=== PATIENT | male | born 1995 | race Caucasian/White ===

== ENCOUNTER 2019-01-16 11:02 | Emergency (ER) | payer OTHER, SELFPAY ==
[2019-01-16 11:10] VITALS: BP 140/101; PULSE 93; RESP 15; TEMP 36.7; O2SAT 99; BMI 21.4
--- NOTE | 2019-01-16 11:21 | PC.NURSE ---
PT reports being able to hear popping in chest. STates it started 2 days ago. Initially stated had some burning to left side down left arm and into left jaw. Denies any more burning since initial. States continues with popping while lying down. states during the day does not have popping feeling. States parents were able to hear popping sound.
--- NOTE | 2019-01-16 12:03 | ED_ITS ---
HPI - Chest Pain <SAUNDRA Rodriguez - Last Filed: 01/16/19 22:17> General Chief Complaint: Chest Pain Stated Complaint: positional intermittent popping in chest Time Seen by Provider: 01/16/19 11:14 Source: patient Mode of arrival: ambulatory Limitations: no limitations History of Present Illness HPI narrative: A 23-year-old male with a history of a resolved heart murmur, presents emergency department today complaining of a clicking to his middle to left chest for the past 2 days. He states the clicking is worse with movement, leaning forward, and leaning to the left. He notices that correlates with his heartbeat and he can reproduce it if he takes a deep breath. Patient states about 2 days ago he tried a new upper body workout and developed a burning 2/10 pain in the left side of his upper body of that only lasted a few hours. He states he was sitting on this occurred and moving his arms made the pain worse. Patient reports that he sleeps on the left side of her body he experiences more clicking but no pain. Today he denies any chest pain and states the clicking has completely resolved over the last 2 hours. He denies any vision changes, headaches, fevers, chills, chest pain, shortness of breath, shoulder pain, rib pain, abdominal pain, nausea, vomiting, stool changes. He denies any change in pain with activity, denies any significant heart history other than a murmur that resolved symptom ago, he does not remember the name of his murmur. Denies long trips or history of DVT. Related Data Home Medications Medication Instructions Recorded Confirmed No Known Home Medications 01/16/19 01/16/19 Allergies Allergy/AdvReac Type Severity Reaction Status Date / Time No Known Drug Allergies Allergy Verified 01/16/19 11:10 Review of Systems <SAUNDRA Rodriguez - Last Filed: 01/16/19 22:17> Review of Systems Narrative: REVIEW OF SYSTEMS: GENERAL: Denies fever or chills. HENT: No head trauma, hearing loss or sore throat. EYES: No loss of vision, double vision, eye pain, or irritation. CARDIOVASCULAR: Complains of as clicking, see HPI RESPIRATORY: No shortness of breath or cough. GASTROINTESTINAL: No nausea, vomiting, diarrhea, or constipation. GENITOURINARY: No flank pain or dysuria. MUSCULOSKELETAL: Complains of rib pain, see HPI. Denies weakness, or deformities. INTEGUMENTARY: No rash, lesions, or pruritus. NEURO: No numbness, tingling, memory loss, or confusion. PSYCH: No behavior or mood changes. PFSH <SAUNDRA Rodriguez - Last Filed: 01/16/19 22:17> Medical History No significant medical problems (Acute) Social History Smoking Status: Never smoker Social History Smoking Status: Never smoker Exam <SAUNDRA Rodriguez - Last Filed: 01/16/19 22:17> Initial Vital Signs Initial Vital Signs: Vital Signs Temperature 98.1 F 01/16/19 11:10 Pulse Rate 93 H 01/16/19 11:10 Respiratory Rate 15 01/16/19 11:10 Blood Pressure 140/101 H 01/16/19 11:10 Pulse Oximetry 99 01/16/19 11:10 PHYSICAL EXAMINATION: GENERAL: Well groomed, alert, and cooperative. Answers questions promptly and appropriately. Vital signs noted. HENT: Normocephalic, atraumatic. Ear canals patent. Oral mucosa is pink and moist. EYES: Conjunctiva pink, sclera white, no periorbital swelling. CHEST: Normal to inspection and without deformities. CARDIOVASCULAR: S1 and S2 sounds normal. Regular rate and rhythm, no murmurs, clicks, or bruits. No pedal edema. RESPIRATORY: Normal respiratory rate, trachea midline, airway patent. No stridor, nasal flaring or accessory muscle use. Lungs are clear in all bashir without wheeze, rhonchi, or crackles. GASTROINTESTINAL: Bowel sounds normoactive. Abdomen is soft and non-tender. No organomegaly. MUSCULOSKELETAL: Tenderness to palpation of costal sternal margin to left ribs (about ribs 7, 8). No swelling, rash, or surrounding erythema. No ecchymosis to area. Full range of motion of upper extremities. No spinal tenderness. Normal gait and coordination. Equal tone and mass bilaterally. EXTREMITIES: CMS intact. Moves all extremities. SKIN: Warm, dry, soft, appropriate color for ethnicity. No lesions, rashes, or wounds. NEURO: Alert and Oriented X 3. Good coordination. No ataxia, or sensory deficits, or cognitive issues. PSYCH: Appropriate affect and mood. <Crystal Barfield MD - Last Filed: 01/17/19 07:10> Initial Vital Signs Initial Vital Signs: Vital Signs Temperature 98.1 F 01/16/19 11:10 Pulse Rate 93 H 01/16/19 11:10 Respiratory Rate 15 01/16/19 11:10 Blood Pressure 140/101 H 01/16/19 11:10 Pulse Oximetry 99 01/16/19 11:10 Course <SAUNDRA Rodriguez - Last Filed: 01/16/19 22:17> Orders Ordered: ED Orders 01/16/19 11:11 EKG-12 Lead Routine Consultations Consultation #1: Patient was staffed with Dr. Barfield. Vital Signs Vital signs: Vital Signs - 8 hr 01/16/19 11:10 Temperature 98.1 F Pulse Rate 93 H Respiratory Rate 15 Blood Pressure 140/101 H Pulse Oximetry 99 <Crystal Barfield MD - Last Filed: 01/17/19 07:10> Orders Ordered: ED Orders 01/16/19 11:11 EKG-12 Lead Routine Vital Signs Vital signs: Vital Signs - 8 hr 01/16/19 11:10 Temperature 98.1 F Pulse Rate 93 H Respiratory Rate 15 Blood Pressure 140/101 H Pulse Oximetry 99 MDM - Chest Pain <SAUNDRA Rodriguez - Last Filed: 01/16/19 22:17> Medical Records Data Attestation: I reviewed the patient's medical records. Lab Data Attestation: I reviewed the patient's lab results. ECG Data Interpretation: Rate 53, ND interval 154, QTC 380. Sinus bradycardia. No ST elevation or ST depression. T-wave inversion noted to aVL. No ectopy. EKG also viewed by Dr. Barfield. [facility] Narrative Medical decision making narrative: Suspect patient's symptoms are most likely caused by costochondritis as patient reports a change in workout routine valve in his upper body, pain is reproducible with palpation to his costal margin, reports of pain and clicking worse with movement, resolution of symptoms a few hours ago, description of pain, lack of other systemic symptoms such as shortness of breath, fevers, or dizziness. Less likely ACS, pericarditis, or cardiac origin due to non unremarkable EKG, resolution of symptoms, no significant history of cardiac issues, pain is reproducible, of fever, lack of systemic symptoms. Less likely PE, resolution of pain, lack of tachycardia, lack of shortness of breath, lack of significant risk factors such as long travel or history. Strict return precautions given and follow-up instructions discussed. Discharge Plan Departure Patient Disposition: Home Clinical Impression: Acute costochondritis Discharge Date/Time: 01/16/19 12:11 Instructions: DI for Costochondritis Activity Restrictions/Additional Instructions: Thank you for entrusting me with your care today. As discussed, it appears your symptoms may be caused by costochondritis, which is an inflammation of the cartilage between your ribs and sternum. You may take ibuprofen 400 mg every 4- 6 hours for the next 3 days as needed for pain and inflammation. Please follow up with your primary care provider in the next week or so her re-evaluation especially if this continues to recur. Return to the emergency department if you develop unrelenting chest pain, chest pain that is worse with exertion, shortness of breath, syncope, dizziness, high fevers, or any other new concerning symptoms. Prescriptions: No Action No Known Home Medications RF: 0
== END 2019-01-16 12:11 | disposition home or self-care (01) ==
PROVIDERS: Emergency Provider Nurse Practitioner
DX: M94.0 Chondrocostal junction syndrome [Tietze] (principal)
CPT/HCPCS: 93005; 93010; 99282; 99283